=== PATIENT | male | born 1985 | race Caucasian/White ===

== ENCOUNTER → 2017-07-02 | Day surgery (SDC) | payer OTHER ==
[~2017-07-02] VITALS: Ht 182.8 cm; Wt 88.5 kg
[~2017-07-02] MED LIST: OMEPRAZOLE40 MG PO
--- NOTE | ~2017-07-02 | O ---
[place], [place] OPERATIVE NOTE NAME: ANTONIO KENDRICK UNIT #: [id number] ROOM: DOCTOR: JENNIFER ULLOA MD BIRTHDATE: [birth year] DOS: 07/02/2017 GASTROENDOSCOPIC REPORT. HISTORY OF PRESENT ILLNESS: A 32-year-old patient who has presented with chief complaint of epigastric distress, dyspepsia. The patient has already been started on Protonix, Protonix has been helping him. The patient with history of cholelithiasis. ALLERGIES: No known medication. FAMILY HISTORY: Noncontributory. PAST SURGICAL HISTORY: Unremarkable. PAST MEDICAL HISTORY: and reflux. PROCEDURE: Today's procedure part of investigation is panendoscopy plus biopsy. PREMEDICATION: Versed and Diprivan. SCOPE: Olympus forward-viewing gastroscope Q10 video. REPORT: After putting the patient in the left lateral position and after application of lubricant to the scope, the scope was introduced. Thereafter, under direct visualization, I advanced through the length of esophagus without difficulty. Gastric pouch was entered. Gastritis was seen. Duodenal bulb, second and third part within normal limits. No ulceration, no obstruction was seen. The patient extubated, tolerated procedure well. IMPRESSION: Gastritis. PLAN AND DISCUSSION: This patient is going to continue Protonix. Follow up as outpatient. He presumably has gallstone and maybe we have to consider cholecystectomy if his symptomatology persists. Thank you very much indeed. [place], [place] OPERATIVE NOTE NAME: ANTONIO KENDRICK UNIT #: [id number] ROOM: DOCTOR: JENNIFER ULLOA MD BIRTHDATE: [birth year] JENNIFER ULLOA MD CM:OPRECORD:OPERATIVE NOTE [id number] MICHAEL ULLOA MD 07/02/17 1500 interface
[2017-07-02 11:28] VITALS: BP 130/67
[2017-07-02 12:26] VITALS: BP 102/61
[2017-07-02 12:41] VITALS: BP 110/62
[2017-07-02 12:56] VITALS: BP 114/78
== END | disposition home or self-care (01) ==
LOC: SDC 06-30 11:00
DX: K29.50 Unspecified chronic gastritis without bleeding (principal); K21.9 Gastro-esophageal reflux disease without esophagitis

== ENCOUNTER → 2017-09-08 | Outpatient (CLI) | payer OTHER | END | disposition home or self-care (01) | LOC: US 07:30 | DX: K80.20 Calculus of gallbladder without cholecystitis without obstruction (principal); K21.9 Gastro-esophageal reflux disease without esophagitis ==

== ENCOUNTER 2017-10-19 20:50 | Emergency (ER) | payer OTHER ==
[~2017-10-19] VITALS: Ht 177.8 cm; Wt 90.7 kg
[2017-10-19 21:18] LABS: BASO % 0.3 % (0.0-1.0); EOS # 0.1 10*3/uL (0.0-0.4); EOS % 1.2 % (1.0-4.0); HEMATOCRIT 40.6 % (42.0-52.0); HEMOGLOBIN 14.1 g/dl (14.0-18.0); LYMPH # 1.2 10*3/uL (1.3-4.4); MEAN CELL VOLUME 93.1 fl (80.0-94.0); MEAN CORPUSCULAR HGB 32.3 pg (27.0-31.0); MEAN CORPUSCULAR HGB CONC 34.7 g/dl (33.0-37.0); MEAN PLATELET VOLUME 10.4 fl (9.6-12.3); MONO # 0.3 10*3/uL (0.1-1.0); MONO % 5.7 % (3.0-9.0); NEUT # 4.3 10*3/uL (2.3-7.9); NEUT % 72.5 % (47.0-73.0); PLATELET COUNT AUTOMATED 67 10*3/uL (130-400); RED BLOOD COUNT 4.36 10*6/uL (4.50-5.90); RED CELL DISTRI WIDTH 11.6 % (0-14.5)
[2017-10-19 21:37] LABS: ALBUMIN 3.7 gm/dl (3.1-4.5); ALKALINE PHOSPHATASE 103 U/L (45-117); BUN 9 mg/dl (7-24); CHLORIDE 104 mmol/L (98-107); POTASSIUM 3.5 mmol/L (3.5-5.1); SGOT/AST 23 IU/L (3-35); SGPT/ALT 47 U/L (12-78); SODIUM 139 mmol/L (136-145); TOTAL PROTEIN 7.6 gm/dL (6.4-8.2)
[2017-10-19 21:38] LABS: TROPONIN I < 0.015 ng/ml (<0.045)
[2017-10-19 22:03] LABS: ACT PARTIAL THROMBO TIME 26.4 SECONDS (20.8-31.5)
[2017-10-19] MEDS ORDERED: MUCINEX DM 30/61 TAB PO (23:29)
[2017-10-19] MEDS ORDERED: ZITHROMAX250 MG PO (23:29)
[2017-10-19] MEDS ORDERED: Motrin,Rufen800 MG PO (23:29)
== END 2017-10-19 23:52 | disposition home or self-care (01) ==
LOC: ED 20:50
PROVIDERS: Emergency Medicine Emergency Medical Services
DX: J20.9 Acute bronchitis, unspecified (principal); Z79.899 Other long term (current) drug therapy

== ENCOUNTER → 2017-11-26 | Outpatient (CLI) | payer OTHER ==
[~2017-11-26] MED LIST changes: +MUCINEX DM 30/61 TAB PO; +Motrin,Rufen800 MG PO; +ZITHROMAX250 MG PO
[2017-11-26 17:15] LABS: BASO % 0.7 % (0.0-1.0); HEMATOCRIT 38.5 % (42.0-52.0); HEMOGLOBIN 13.2 g/dl (14.0-18.0); LYMPH # 1.1 10*3/uL (1.3-4.4); LYMPH % 27.6 % (27.0-41.0); MEAN CELL VOLUME 94.4 fl (80.0-94.0); MEAN CORPUSCULAR HGB 32.4 pg (27.0-31.0); MEAN CORPUSCULAR HGB CONC 34.3 g/dl (33.0-37.0); MEAN PLATELET VOLUME 10.7 fl (9.6-12.3); MONO # 0.6 10*3/uL (0.1-1.0); MONO % 14.8 % (3.0-9.0); NEUT # 2.3 10*3/uL (2.3-7.9); NEUT % 55.7 % (47.0-73.0); PLATELET COUNT AUTOMATED 107 10*3/uL (130-400); RED BLOOD COUNT 4.08 10*6/uL (4.50-5.90); RED CELL DISTRI WIDTH 11.8 % (0-14.5); WHITE BLOOD COUNT 4.1 10*3/uL (4.8-10.8)
[2017-11-27 07:05] LABS: HIV 1+2 AB + HIV1 P24 AG Non Reactive (Non Reactive)
== END | disposition home or self-care (01) ==
LOC: LAB 16:34
PROVIDERS: Internal Medicine
DX: D69.6 Thrombocytopenia, unspecified (principal); B34.9 Viral infection, unspecified

== ENCOUNTER 2020-02-07 10:45 | Emergency (ER) | payer OTHER ==
[~2020-02-07] VITALS: Ht 182.8 cm; Wt 79.4 kg
[2020-02-07 12:06] LABS: BASO % 0.7 % (0.0-1.0); EOS # 0.1 10*3/uL (0.0-0.4); EOS % 1.5 % (1.0-4.0); HEMATOCRIT 45.3 % (42.0-52.0); LYMPH # 1.6 10*3/uL (1.3-4.4); LYMPH % 28.8 % (27.0-41.0); MEAN CELL VOLUME 98.1 fl (80.0-94.0); MEAN CORPUSCULAR HGB 32.9 pg (27.0-31.0); MEAN CORPUSCULAR HGB CONC 33.6 g/dl (33.0-37.0); MEAN PLATELET VOLUME 11.4 fl (9.6-12.3); MONO # 0.3 10*3/uL (0.1-1.0); MONO % 6.3 % (3.0-9.0); NEUT # 3.4 10*3/uL (2.3-7.9); NEUT % 62.5 % (47.0-73.0); PLATELET COUNT AUTOMATED 200 10*3/uL (130-400); RED BLOOD COUNT 4.62 10*6/uL (4.50-5.90); RED CELL DISTRI WIDTH 11.3 % (0-14.5); WHITE BLOOD COUNT 5.4 10*3/uL (4.8-10.8)
[2020-02-07 12:21] LABS: ALBUMIN 4.2 gm/dl (3.1-4.5); BUN 12 mg/dl (7-24); CHLORIDE 104 mmol/L (98-107); CREATININE 0.97 mg/dL (0.70-1.30); SGOT/AST 20 IU/L (3-35); SGPT/ALT 41 U/L (12-78); SODIUM 138 mmol/L (136-145); TOTAL PROTEIN 8.3 gm/dL (6.4-8.2)
[2020-02-07 12:24] LABS: ALKALINE PHOSPHATASE 95 U/L (45-117)
[2020-02-07 12:27] LABS: TROPONIN I < 0.015 ng/ml (<0.045)
== END 2020-02-07 12:39 | disposition home or self-care (01) ==
LOC: ED 10:45
PROVIDERS: Nurse Practitioner Family
DX: R07.89 Other chest pain (principal); K21.9 Gastro-esophageal reflux disease without esophagitis; Z79.899 Other long term (current) drug therapy

== ENCOUNTER 2020-06-24 11:57 | Emergency (ER) | payer OTHER ==
[~2020-06-24] VITALS: Ht 182.8 cm; Wt 77.1 kg
[2020-06-24 13:05] LABS: BILIRUBIN NEGATIVE; BLOOD NEGATIVE (NEGATIVE); CLARITY CLEAR (CLEAR); COLOR YELLOW (YELLOW); GLUCOSE NEGATIVE; KETONE NEGATIVE; PH 5.5 (4.5-8.0); SPECIFIC GRAVITY <= 1.005 (1.001-1.030)
[2020-06-24 13:06] LABS: LEUKO ESTERASE NEGATIVE (NEGATIVE); NITRITE NEGATIVE (NEGATIVE); RBC 0-2 rbc/hpf (0-2); UROBILINOGEN 0.2 E.U./dl (0.0-1.0); WBC 0-2 wbc/hpf (0-5)
[2020-06-24 13:43] LABS: BASO % 0.7 % (0.0-1.0); EOS # 0.1 10*3/uL (0.0-0.4); HEMATOCRIT 47.8 % (42.0-52.0); LYMPH # 1.8 10*3/uL (1.3-4.4); LYMPH % 29.2 % (27.0-41.0); MEAN CELL VOLUME 96.6 fl (80.0-94.0); MEAN CORPUSCULAR HGB 32.3 pg (27.0-31.0); MEAN CORPUSCULAR HGB CONC 33.5 g/dl (33.0-37.0); MEAN PLATELET VOLUME 11.6 fl (9.6-12.3); MONO # 0.5 10*3/uL (0.1-1.0); MONO % 7.8 % (3.0-9.0); NEUT # 3.7 10*3/uL (2.3-7.9); NEUT % 61.1 % (47.0-73.0); PLATELET COUNT AUTOMATED 181 10*3/uL (130-400); RED BLOOD COUNT 4.95 10*6/uL (4.50-5.90); RED CELL DISTRI WIDTH 11.5 % (0-14.5)
[2020-06-24 13:57] LABS: ALBUMIN 4.2 gm/dl (3.1-4.5); ALKALINE PHOSPHATASE 92 U/L (45-117); BUN 10 mg/dl (7-24); CHLORIDE 105 mmol/L (98-107); CREATININE 1.02 mg/dL (0.70-1.30); POTASSIUM 4.1 mmol/L (3.5-5.1); SGOT/AST 17 IU/L (3-35); SGPT/ALT 36 U/L (12-78); SODIUM 138 mmol/L (136-145); TOTAL PROTEIN 8.1 gm/dL (6.4-8.2)
== END 2020-06-24 15:50 | disposition home or self-care (01) ==
LOC: ED 11:57
PROVIDERS: Nurse Practitioner Family
DX: K46.9 Unspecified abdominal hernia without obstruction or gangrene (principal); Z79.899 Other long term (current) drug therapy